=== PATIENT | female | born 1995 | race Hispanic/Latino ===

== ENCOUNTER 2019-08-27 19:30 | Inpatient (IN) | payer OTHER ==
--- NOTE | 2019-08-27 20:14 | PDOC.LDHP ---
Labor and Delivery H&P Chief complaint: scheduled induction (for A2GDM) Current gestational age (weeks): 38 (6 days) Due date: 09/04/19 Dating criteria: second trimester ultrasound Grav: 1 Para: 0 Current complications: gestational diabetes (Onmetformin 500mg BID), other (Late to care Insufficient care) Abnormal US findings: No Current medications: pre- vitamins, other (Metformin 500mg BID) Previous surgical history: none Allergies/Adverse Reactions: Allergies Allergy/AdvReac Type Severity Reaction Status Date / Time No Known Allergies Allergy Unverified 08/27/19 23:23 Social history: none - Physical Exam General: NAD, resting Lungs: nonlabored breathing Abdomen: gravid FHT: category 1 - Vaginal Exam cm dilated: 1 Effacement: 75% Station: -2 - OB Labs Blood type: O RH: positive Antibody Screen: negative HIV: negative RPR: negative HEPSAg: negative 1 hour GCT: positive (213 - diagnosed with GDM on 50gm) GBS: negative Urine drug screen: negative Rubella: immune - Assessment L&D Assessment: medically indicated induction - Plan Plan: admit to L&D, cervical ripening, labor augmentation if indicated
[2019-08-27 23:33] VITALS: BMI 36.5
[2019-08-27] MEDS ORDERED: hydrALAZINE 20 MG/ML VIAL SLOW IVP PRN (23:33)
[2019-08-27] MEDS ORDERED: HYDROcodone/Acetaminophen 5/325 mg Tablet PO PRN ×2 (23:33)
[2019-08-27] MEDS ORDERED: Butorphanol Tartrate 1 MG/ML VIAL SLOW IVP PRN (23:33)
[2019-08-27] MEDS ORDERED: Ondansetron PF 4 MG/2 ML Vial IVP PRN (23:33)
[2019-08-27] MEDS ORDERED: NS / Oxytocin 40 units/1000ml 1,000 ML IV PRN (23:33)
[2019-08-27] MEDS ORDERED: Misoprostol 200 MCG TAB PR PRN (23:33)
[2019-08-27] MEDS ORDERED: Methylergonovine 0.2 MG/ML VIAL IM PRN (23:33)
[2019-08-27] MEDS ORDERED: NS w/ Oxytocin 10 units 500 ML IV SCH (23:33)
[2019-08-27] MEDS ORDERED: Ibuprofen 800 MG TAB PO PRN (23:33)
[2019-08-27] MEDS ORDERED: Promethazine HCl 25 MG/ML VIAL IM PRN (23:33)
[2019-08-27] MEDS ORDERED: Lidocaine 1% (PF) 30 ML VIAL SC PRN (23:33)
[2019-08-27 23:53] LABS: Hemoglobin 11.2 g/dL (12.0-16.0); Mean Corpuscular HGB CONC 33.9 g/dL (32.0-36.0); Mean Corpuscular Hemoglobin 26.9 pg (27.0-31.0); Mean Corpuscular Volume 79.4 fL (78.0-98.0); Mean Platelet Volume 9.8 fL (7.4-10.4); Platelet Count 196 thou/uL (130-400); RBC Distribution Width 15.2 % (11.5-14.5); Red Blood Cell (RBC) Count 4.14 mill/uL (4.20-5.40); White Blood Cell (WBC) Count 9.8 thou/uL (4.8-10.8)
[2019-08-28] MEDS: Misoprostol 100 MCG TAB VAG SCH ×3 (00:10→13:04)
[2019-08-28] MEDS: Lactated Ringer's 1,000 ML IV SCH ×3 (00:10→13:03)
[2019-08-28 00:31] LABS: HBSAg Index 0.21 S/CO (0-0.99); Hep B Surf Ag Non-Reactive S/CO (NonReactive); Syphilis Antibody Nonreactive (Nonreactive); Syphilis Antibody Index 0.03 S/CO (<1.00 Non-Reactive)
[2019-08-28] MEDS ORDERED: Terbutaline Sulfate 1 MG/ML VIAL ONE (05:14)
[2019-08-28] MEDS ORDERED: Terbutaline Sulfate 1 MG/ML VIAL SC SCH (05:30)
[2019-08-29] MEDS: Lactated Ringer's 1,000 ML IV SCH ×2 (04:13→13:35)
[2019-08-29] MEDS: Misoprostol 100 MCG TAB VAG SCH ×3 (04:13→13:35)
--- NOTE | 2019-08-29 06:13 | PDOC.LDPN ---
Labor & Delivery Progress Note - Subjective Subjective: painful contractions - Objective Vital signs reviewed and normal: yes General: resting Uterine fundus: non tender Dilation: 1 Effacement: 75% Station: -3 FHT: category 2 Procedures: Cooks balloon placement - Assessment (1) Gestational diabetes mellitus Code(s): O24.419 - GESTATIONAL DIABETES MELLITUS IN , UNSP CONTROL Current Visit: Yes Status: Acute Plan: other (After one dose of 50mcg cytotec PV, fetus had multiple episode of late decels and variable decel. Terbutaline was administered. Canceled the ordered for additional cytoec. At 0815 at on 08/28/19 I placed a cooks balloon with the instructions to remove 12 hours later by RN and pitocin. )
--- NOTE | 2019-08-29 10:29 | PDOC.OPDEL ---
OB Operative/Delivery Note Delivery Dr/Surgeon: Jag Sahni Pre-Delivery Diagnosis: active labor, medically indicated induction Procedure/Post Delivery Dx: spontaneous vaginal delivery Weeks gestation: 39 Anesthesia: none - Findings A Sex: male Weight: 7 lb 4 oz - 1 min: 7 - 5 min: 9 - Additional Findings/Plan Placenta delivered: spontaneous Repaired Obstetrical Laceration: 2nd degree Estimated blood loss: 300mL Post delivery plan: routine recovery
[2019-08-29] MEDS ORDERED: Misoprostol 200 MCG TAB VAG PRN (10:59)
[2019-08-29] MEDS ORDERED: NS / Oxytocin 40 units/1000ml 1,000 ML IV SCH (10:59)
[2019-08-29] MEDS ORDERED: Methylergonovine 0.2 MG/ML VIAL IM PRN (10:59)
[2019-08-29] MEDS ORDERED: Adacel (T-DAP) 0.5 ML SYRINGE IM ONE (10:59)
[2019-08-29] MEDS ORDERED: Bisacodyl 10 MG SUPP PR PRN (10:59)
[2019-08-29] MEDS ORDERED: Milk Of Magnesia 30 ML UDCUP PO PRN (10:59)
[2019-08-29] MEDS ORDERED: Ondansetron PF 4 MG/2 ML Vial IVP PRN (10:59)
[2019-08-29] MEDS ORDERED: HYDROcodone/Acetaminophen 5/325 mg Tablet PO PRN ×2 (10:59)
[2019-08-29] MEDS ORDERED: hydrALAZINE 20 MG/ML VIAL SLOW IVP PRN (10:59)
[2019-08-29] MEDS: Ibuprofen 800 MG TAB PO SCH ×2 (14:01→21:49)
[2019-08-29] MEDS: Benzocaine-Menthol 82.5 ML CAN TOP PRN ×2 (14:01→21:49)
[2019-08-29] MEDS: Docusate Calcium (SURFAK) 240 MG CAP PO SCH (21:49)
[2019-08-30] MEDS: Ferrous Sulfate 325 MG TAB PO SCH ×3 (03:29→17:06)
[2019-08-30] MEDS: Ibuprofen 800 MG TAB PO SCH ×3 (05:24→21:53)
--- NOTE | 2019-08-30 05:36 | PDOC.PP ---
Post Progress Note Post Day #: 1 Subjective: Pt is doing well. has not been up to bathroom in a long time. would like to shower. She is PO intake tolerated: yes Flatus: yes Ambulation: yes Vital Signs (12 hours) Temp Pulse Resp BP BP Pulse Ox 08/30/19 00:00 98.5 F 91 18 106/56 L 98 08/29/19 19:50 98.5 F 95 16 110/54 L 97 Weight Weight 206 lb - Physical Examination General: NAD Respiratory: non-labored breathing Abdominal: lochia (minimal) Fundus firm & at: +1 Right deviation Extremities: negative homans (B) Skin: no rash Neurological: no gross focal deficits Psychiatric: A&Ox3, normal affect Result Diagrams: 08/27/19 23:45 Additional Labs: Post Labs Blood Type O POSITIVE 08/28/19 00:04 Hep Bs Antigen Non-Reactive S/CO (NonReactive) 08/27/19 23:45 (1) Gestational diabetes mellitus Code(s): O24.419 - GESTATIONAL DIABETES MELLITUS IN , UNSP CONTROL Status: Acute (2) (spontaneous vaginal delivery) Code(s): O80 - ENCOUNTER FOR FULL-TERM UNCOMPLICATED DELIVERY Status: Acute - Assessment/Plan A: G1now p1 s/p for IOL for A2GDM P: routine care discharge home tomorrow
[2019-08-30] MEDS: Prenatal Vitamin 1 TAB PO SCH (09:41)
[2019-08-30] MEDS: Docusate Calcium (SURFAK) 240 MG CAP PO SCH ×2 (09:41→21:53)
[2019-08-31] MEDS: Ibuprofen 800 MG TAB PO SCH ×2 (04:36→13:39)
--- NOTE | 2019-08-31 07:59 | PDOC.PP ---
Post Progress Note Vital Signs (12 hours) Temp Pulse Resp BP Pulse Ox 08/31/19 00:00 98.5 F 84 20 124/60 97 Weight Weight 93.44 kg Result Diagrams: 08/27/19 23:45 Additional Labs: Post Labs Blood Type O POSITIVE 08/28/19 00:04 Hep Bs Antigen Non-Reactive S/CO (NonReactive) 08/27/19 23:45
--- NOTE | 2019-08-31 08:12 | PDOC.PP ---
Post Progress Note Post Day #: 2 Subjective: Patient reports feeling well this AM. Is tolerating PO. Voiding, stooling and ambulating normally. States lochia is more than a period but denies passing any large clots. Pain is well-controlled. VS have remained WNLs since delivery. PO intake tolerated: yes Flatus: yes Ambulation: yes Vital Signs (12 hours) Temp Pulse Resp BP Pulse Ox 08/31/19 00:00 98.5 F 84 20 124/60 97 Weight Weight 93.44 kg - Physical Examination General: NAD Cardiovascular: no m/r/g, RRR Respiratory: clear to auscultation bilaterally, non-labored breathing Abdominal: + bowel sounds, lochia, no distention, appropriately TTP Fundus firm & at: just above umbilicus Extremities: negative homans (B) Neurological: no gross focal deficits Psychiatric: A&Ox3, normal affect Result Diagrams: 08/27/19 23:45 Additional Labs: Post Labs Blood Type O POSITIVE 08/28/19 00:04 Hep Bs Antigen Non-Reactive S/CO (NonReactive) 08/27/19 23:45 (1) Gestational diabetes mellitus Code(s): O24.419 - GESTATIONAL DIABETES MELLITUS IN , UNSP CONTROL Status: Acute (2) (spontaneous vaginal delivery) Code(s): O80 - ENCOUNTER FOR FULL-TERM UNCOMPLICATED DELIVERY Status: Acute - Assessment/Plan G1now p1 who is PP day #2 s/p for IOL for A2GDM PP day #2 s/p : VS stable & patient doing well. Is tolerating PO. Voiding, stooling and ambulating normally. Continue routine care. Dispo: Discharge home today.
[2019-08-31] MEDS: Ferrous Sulfate 325 MG TAB PO SCH (08:34)
[2019-08-31 09:06] VITALS: BP 118/85; TEMP 98.2
[2019-08-31] MEDS: Prenatal Vitamin 1 TAB PO SCH (09:37)
[2019-08-31] MEDS: Docusate Calcium (SURFAK) 240 MG CAP PO SCH (09:37)
[2019-08-31] MEDS ORDERED: Lanolin Ointment 7 GM TUBE TOP PRN (14:48)
== END 2019-08-31 15:45 | disposition home or self-care (01) | DRG 807 ==
LOC: L&D 22:49 → 3SW 08-29 13:19
PROVIDERS: ADMIT Obstetrics & Gynecology; ATTEND Obstetrics & Gynecology
PROC: 10E0XZZ Delivery of Products of Conception, External Approach (ICD-10-PCS; principal; 2019-08-29)
PROC: 0KQM0ZZ Repair Perineum Muscle, Open Approach (ICD-10-PCS; 2019-08-29)
PROC: 3E033VJ Introduction of Other Hormone into Peripheral Vein, Percutaneous Approach (ICD-10-PCS; 2019-08-29)
PROC: 0U7G7ZZ Dilation of Vagina, Via Natural or Artificial Opening (ICD-10-PCS; 2019-08-29)
DX: O24.420 Gestational diabetes mellitus in childbirth, diet controlled (principal); Z37.0 Single live birth; Z3A.38 38 weeks gestation of pregnancy; O70.1 Second degree perineal laceration during delivery; O76 Abnormality in fetal heart rate and rhythm complicating labor and delivery
CPT/HCPCS: 36415; 36416; 85027; 86780; 86850; 86900; 86901; 87340; J2590; J3105